=== PATIENT | female | born 1975 | race Caucasian/White ===

== ENCOUNTER 2018-06-17 18:19 | Emergency (ER) | payer MEDICAID ==
[~2018-06-17] VITALS: Ht 165.1 cm; Wt 86.2 kg
[2018-06-17 19:24] LABS: BASOPHILS % (AUTO) 0.5 % (0-1); EOSINOPHILS % (AUTO) 0.6 % (0-6); HEMATOCRIT 35.8 % (35.0-45.0); HEMOGLOBIN 11.3 g/dl (12.0-16.0); LYMPHOCYTES % (AUTO) 27.3 % (21-51); MEAN CORPUSCULAR HEMOGLOBIN 22.9 PG (27.0-31.0); MEAN CORPUSCULAR HGB CONC 31.6 % (33.0-36.5); MEAN CORPUSCULAR VOLUME 72.3 FL (78-98); MEAN PLATELET VOLUME 8.1 FL (7.4-10.4); MONOCYTES # (AUTO) 0.5 X10'3 (0-0.9); MONOCYTES % (AUTO) 6.4 % (2-12); NEUTROPHILS % (AUTO) 65.2 % (42-75); PLATELET COUNT 421 X10'3 (140-440); RED BLOOD COUNT 4.95 X10'6 (4.20-5.60); RED CELL DISTRIBUTION WIDTH 16.8 % (11.5-14.5); WHITE BLOOD COUNT 7.5 X10'3 (4.5-11.0)
[2018-06-17 19:34] LABS: ALANINE AMINOTRANSFERASE 34 U/L (12-78); ALBUMIN 3.2 G/DL (3.4-5.0); ALBUMIN/GLOBULIN RATIO 0.9 (1.1-1.5); ALKALINE PHOSPHATASE 111 IU/L (46-116); ANION GAP 10 (8-16); ASPARTATE AMINO TRANSFERASE 35 U/L (10-37); BILIRUBIN,TOTAL 0.7 MG/DL (0.1-1.0); BLOOD UREA NITROGEN 25 MG/DL (7-18); BUN/CREATININE RATIO 23.1 (6.6-38.0); CALCIUM 8.1 MG/DL (8.5-10.1); CHLORIDE 105 MMOL/L (99-107); CREATININE 1.08 MG/DL (0.40-0.90); PARTIAL THROMBOPLASTIN TIME 24 SECONDS (22-32); POTASSIUM 3.7 MMOL/L (3.5-5.1); PROTHROMBIN TIME 10.6 SECONDS (9.0-12.0); SODIUM 139 MMOL/L (135-145); TOTAL CARBON DIOXIDE 24.4 MMOL/L (24-32); TOTAL PROTEIN 6.7 G/DL (6.4-8.2); eGFR 55 ML/MIN
[2018-06-17 19:36] LABS: GLUCOSE 48 MG/DL (70-104)
[2018-06-17] MEDS ORDERED: HYDR-4353 PO (20:55)
[2018-06-17] MEDS ORDERED: SULF1TAB49 PO (20:55)
[2018-06-17] MEDS ORDERED: HYDROcodone/acetaminophen 10/325mg tab PO ONE (21:30)
[2018-06-17] MEDS ORDERED: ondansetron 4mg rapidly disintigrating tab PO ONE (21:30)
[2018-06-17] MEDS ORDERED: sulfamethoxazole/trimethoprim DS (800/160mg) tablet PO ONE (21:30)
[2018-06-17 21:42] VITALS: BP 111/73
== END 2018-06-17 21:49 | disposition home or self-care (01) ==
LOC: ER 18:19
DX: I96 Gangrene, not elsewhere classified (principal); F15.90 Other stimulant use, unspecified, uncomplicated; Z98.890 Other specified postprocedural states; Z98.84 Bariatric surgery status
CPT/HCPCS: 36415; 71045; 73140; 80053; 82948; 83605; 84145; 85025; 85610; 85730; 87040; 99285

== ENCOUNTER 2018-07-05 09:35 | Outpatient (CLI) | payer MEDICAID ==
[2018-07-05] MEDS ORDERED: POTA10TA19 PO (11:50)
== END 2018-07-05 12:30 | disposition home or self-care (01) ==
LOC: WOUND CARE 09:35
PROVIDERS: ATTEND Surgery
DX: S61.200A Unspecified open wound of right index finger without damage to nail, initial encounter (principal); L08.9 Local infection of the skin and subcutaneous tissue, unspecified; I96 Gangrene, not elsewhere classified; F17.200 Nicotine dependence, unspecified, uncomplicated; F15.10 Other stimulant abuse, uncomplicated; Z98.84 Bariatric surgery status; Z90.49 Acquired absence of other specified parts of digestive tract; X58.XXXA Exposure to other specified factors, initial encounter; Y93.89 Activity, other specified; Y92.89 Other specified places as the place of occurrence of the external cause; Y99.8 Other external cause status
CPT/HCPCS: 99215; A4414; A6196

== ENCOUNTER 2018-07-15 11:00 | Outpatient (CLI) | payer MEDICAID ==
[~2018-07-15 11:00] MED LIST: POTA10TA19 PO
[2018-07-15] MEDS ORDERED: LIDOcaine/PRILOcaine 5gm cream TP ONE (11:48)
[2018-07-15] MEDS ORDERED: FURO-150 PO (13:21)
[2018-07-15] MEDS ORDERED: LISI-600 PO (13:21)
[2018-07-15] MEDS ORDERED: CIPR-259 PO (13:22)
== END 2018-07-15 12:53 | disposition home or self-care (01) ==
LOC: WOUND CARE 11:00
PROVIDERS: ATTEND Surgery
DX: S61.200D Unspecified open wound of right index finger without damage to nail, subsequent encounter (principal); L08.9 Local infection of the skin and subcutaneous tissue, unspecified; I96 Gangrene, not elsewhere classified; F17.200 Nicotine dependence, unspecified, uncomplicated; F15.10 Other stimulant abuse, uncomplicated; Z98.84 Bariatric surgery status; Z90.49 Acquired absence of other specified parts of digestive tract; X58.XXXD Exposure to other specified factors, subsequent encounter
CPT/HCPCS: 99215; A6196

== ENCOUNTER 2018-07-21 10:47 | Outpatient (CLI) | payer MEDICAID ==
[~2018-07-21 10:47] MED LIST changes: +CIPR-259 PO; +FURO-150 PO; +LISI-600 PO
[2018-07-21] MEDS ORDERED: LIDOcaine/PRILOcaine 5gm cream TP ONE (11:17)
[2018-07-21] MEDS ORDERED: COLL30OI TP (12:10)
== END 2018-07-21 11:59 | disposition home or self-care (01) ==
LOC: WOUND CARE 10:47
PROVIDERS: ATTEND Surgery
DX: S61.200D Unspecified open wound of right index finger without damage to nail, subsequent encounter (principal); L08.9 Local infection of the skin and subcutaneous tissue, unspecified; I96 Gangrene, not elsewhere classified; F17.200 Nicotine dependence, unspecified, uncomplicated; F15.10 Other stimulant abuse, uncomplicated; Z98.84 Bariatric surgery status; Z90.49 Acquired absence of other specified parts of digestive tract; X58.XXXD Exposure to other specified factors, subsequent encounter
CPT/HCPCS: 99215; A6196

== ENCOUNTER 2018-08-06 09:49 | Outpatient (CLI) | payer MEDICAID ==
[~2018-08-06 09:49] MED LIST changes: +COLL30OI TP
[2018-08-06] MEDS ORDERED: LIDOcaine 2% 5ml jelly MM ONE (14:15)
== END 2018-08-06 11:24 | disposition home or self-care (01) ==
LOC: WOUND CARE 09:49
PROVIDERS: ATTEND Surgery
DX: S61.200D Unspecified open wound of right index finger without damage to nail, subsequent encounter (principal); L08.9 Local infection of the skin and subcutaneous tissue, unspecified; I96 Gangrene, not elsewhere classified; F17.200 Nicotine dependence, unspecified, uncomplicated; F15.10 Other stimulant abuse, uncomplicated; Z98.84 Bariatric surgery status; Z90.49 Acquired absence of other specified parts of digestive tract; X58.XXXD Exposure to other specified factors, subsequent encounter
CPT/HCPCS: 99214; A6196; A6212

== ENCOUNTER 2018-08-12 11:05 | Day surgery (SDC) | payer MEDICAID | END 2018-08-12 12:51 | disposition home or self-care (01) | LOC: WOUND CARE 11:05 | PROVIDERS: ATTEND Surgery | DX: L98.491 Non-pressure chronic ulcer of skin of other sites limited to breakdown of skin (principal); L08.9 Local infection of the skin and subcutaneous tissue, unspecified; I96 Gangrene, not elsewhere classified; F17.200 Nicotine dependence, unspecified, uncomplicated; F15.10 Other stimulant abuse, uncomplicated; Z98.84 Bariatric surgery status; Z90.49 Acquired absence of other specified parts of digestive tract | CPT/HCPCS: A6021 ==

== ENCOUNTER 2018-08-25 10:31 | Outpatient (CLI) | payer MEDICAID ==
[~2018-08-25 10:31] MED LIST changes: -CIPR-259 PO
== END 2018-08-25 12:05 | disposition home or self-care (01) ==
LOC: WOUND CARE 10:31
PROVIDERS: ATTEND Surgery
DX: L98.491 Non-pressure chronic ulcer of skin of other sites limited to breakdown of skin (principal); L08.9 Local infection of the skin and subcutaneous tissue, unspecified; I96 Gangrene, not elsewhere classified; F17.200 Nicotine dependence, unspecified, uncomplicated; F15.10 Other stimulant abuse, uncomplicated; Z98.84 Bariatric surgery status; Z90.49 Acquired absence of other specified parts of digestive tract
CPT/HCPCS: A6021; G0463

== ENCOUNTER 2018-09-02 10:51 | Day surgery (SDC) | payer MEDICAID ==
[~2018-09-02 10:51] MED LIST changes: -COLL30OI TP
[2018-09-02] MEDS ORDERED: LIDOcaine 1%/PF 5ML 10 MG/ML VIAL ONE (12:20)
== END 2018-09-02 12:52 | disposition home or self-care (01) ==
LOC: WOUND CARE 10:51
PROVIDERS: ATTEND Surgery
DX: L98.491 Non-pressure chronic ulcer of skin of other sites limited to breakdown of skin (principal); L08.9 Local infection of the skin and subcutaneous tissue, unspecified; I96 Gangrene, not elsewhere classified; F17.200 Nicotine dependence, unspecified, uncomplicated; F15.10 Other stimulant abuse, uncomplicated; Z98.84 Bariatric surgery status; Z90.49 Acquired absence of other specified parts of digestive tract
CPT/HCPCS: 11044; A6222; J2001; A6021

== ENCOUNTER 2018-09-15 09:46 | Day surgery (SDC) | payer MEDICAID ==
[2018-09-15] MEDS ORDERED: LIDOcaine 2% 5ml jelly MM ONE (11:25)
--- NOTE | 2018-09-15 11:28 | NUR ---
Patient ambulated independently from [facility] and was admitted to outpatient wound care for physician visit. Dressing removed, wound cleansed and lidocaine applied per order. Patient assessed for changes in conditions, medications and medical history. Dr. Recinos at bedside accompanied by RN. Wound assessed, time out performed by MD/RN. Wound debrided as detailed in the physician progress/procedure note. Plan of care discussed with patient. Dressings placed per MD orders. Patient instructed on the signs and symptoms of infection and to call the Wound Center if any occur or to go to the ED if we are closed: Increased pain in wound Increase in drainage from the wound Redness in the skin surrounding the wound Bleeding from the wound Temperature of 101 or greater Patient verbalized understanding of all discharge instructions and plan of care and ambulated independently out to [facility] in stable condition with no sign or symptom of distress at time of discharge. Addendum: 09/15/18 at 1129 by Omaira Porter RN Amended: Links added.
== END 2018-09-15 11:03 | disposition home or self-care (01) ==
LOC: WOUND CARE 09:46
PROVIDERS: ATTEND Surgery
DX: L98.493 Non-pressure chronic ulcer of skin of other sites with necrosis of muscle (principal); L08.9 Local infection of the skin and subcutaneous tissue, unspecified; I96 Gangrene, not elsewhere classified; F17.200 Nicotine dependence, unspecified, uncomplicated; F15.10 Other stimulant abuse, uncomplicated; Z98.84 Bariatric surgery status; Z90.49 Acquired absence of other specified parts of digestive tract
CPT/HCPCS: 97597; A6021; A6206

== ENCOUNTER 2018-10-05 09:34 | Outpatient (CLI) | payer MEDICAID ==
[2018-10-05] MEDS ORDERED: LIDOcaine/PRILOcaine 5gm cream TP ONE (10:03)
--- NOTE | 2018-10-05 12:20 | NUR ---
Patient ambulated independently from [facility] and was admitted to outpatient wound care for physician visit with Lance Recinos MD. Dressing removed, wound cleansed and lidocaine applied per order. Patient assessed for changes in conditions, medications and medical history. Dr. Recinos at bedside accompanied by RN. Wound assessed and no debridement was done. Plan of care discussed with patient. Dressings placed per MD orders. Patient instructed on the signs and symptoms of infection and to call the Wound Center if any occur or to go to the ED if we are closed: Increased pain in wound Increase in drainage from the wound Redness in the skin surrounding the wound Bleeding from the wound Temperature of 101 or greater Patient verbalized understanding of all discharge instructions and plan of care and ambulated independently out to [facility] in stable condition with no sign or symptom of distress at time of discharge. Addendum: 10/05/18 at 1223 by Omaira Porter RN Amended: Links added.
== END 2018-10-05 10:49 | disposition home or self-care (01) ==
LOC: WOUND CARE 09:34
PROVIDERS: ATTEND Surgery
DX: L98.493 Non-pressure chronic ulcer of skin of other sites with necrosis of muscle (principal); L08.9 Local infection of the skin and subcutaneous tissue, unspecified; I96 Gangrene, not elsewhere classified; F17.200 Nicotine dependence, unspecified, uncomplicated; F15.10 Other stimulant abuse, uncomplicated; Z98.84 Bariatric surgery status; Z90.49 Acquired absence of other specified parts of digestive tract
CPT/HCPCS: A6255; G0463

== ENCOUNTER 2018-10-14 10:43 | Outpatient (CLI) | payer MEDICAID ==
[2018-10-14] MEDS ORDERED: LIDOcaine 2% 5ml jelly ONE (12:14)
--- NOTE | 2018-10-14 13:00 | NUR ---
Patient ambulated independently from [facility] accompanied by her mother and was admitted to outpatient wound care for physician visit with Lance Recinos MD. Dressing removed, wound cleansed and lidocaine applied per order. Patient assessed for changes in conditions, medications and medical history. 1215 - Dr. Recinos at bedside accompanied by RN. Wound assessed by MD; orders written. Plan of care discussed with patient. Dressings placed per MD orders. Patient instructed on the signs and symptoms of infection and to call the Wound Center if any occur or to go to the ED if we are closed: Increased pain in wound Increase in drainage from the wound Redness in the skin surrounding the wound Bleeding from the wound Temperature of 101 or greater Patient instructed that the weight of their body puts a large amount of pressure on their wounds. This pressure keeps the new tissue from growing and inhibits new blood vessels from forming. Explained that, if they continue to bear weight on a body part that has a wound, the time it takes to heal the wound increases, the wound may get worse or the wound may not heal at all. Patient and her mother verbalized understanding of all discharge instructions and plan of care and patient ambulated independently out to [facility] in stable condition with no sign or symptom of distress at time of discharge and is accompanied by her mother.
== END 2018-10-14 12:40 | disposition home or self-care (01) ==
LOC: WOUND CARE 10:43
PROVIDERS: ATTEND Surgery
DX: L98.493 Non-pressure chronic ulcer of skin of other sites with necrosis of muscle (principal); L08.9 Local infection of the skin and subcutaneous tissue, unspecified; I96 Gangrene, not elsewhere classified; F17.200 Nicotine dependence, unspecified, uncomplicated; F15.10 Other stimulant abuse, uncomplicated; Z98.84 Bariatric surgery status; Z90.49 Acquired absence of other specified parts of digestive tract
CPT/HCPCS: A6206; G0463

== ENCOUNTER 2018-10-27 10:50 | Day surgery (SDC) | payer MEDICAID ==
[2018-10-27] MEDS ORDERED: LIDOcaine/PRILOcaine 5gm cream TP ONE (11:03)
--- NOTE | 2018-10-27 12:14 | NUR ---
Patient ambulated independently from [facility] and was admitted to outpatient wound care for physician visit with Lance Recinos MD. Dressing removed, wound cleansed and lidocaine applied per order. Patient assessed for changes in conditions, medications and medical history. Dr. Recinos at bedside accompanied by RN. Wound assessed, time out performed by MD/RN. Wound debrided as detailed in the physician progress/procedure note. Plan of care discussed with patient. Dressings placed per MD orders. Patient instructed on the signs and symptoms of infection and to call the Wound Center if any occur or to go to the ED if we are closed: Increased pain in wound Increase in drainage from the wound Redness in the skin surrounding the wound Bleeding from the wound Temperature of 101 or greater Patient instructed that the weight of their body puts a large amount of pressure on their wounds. This pressure keeps the new tissue from growing and inhibits new blood vessels from forming. Explained that, if they continue to bear weight on a body part that has a wound, the time it takes to heal the wound increases, the wound may get worse or the wound may not heal at all. Patient verbalized understanding of all discharge instructions and plan of care and ambulated independently out to [facility] in stable condition with no sign or symptom of distress at time of discharge. Addendum: 10/27/18 at 1215 by Omaira Porter RN Amended: Links added.
== END 2018-10-27 11:56 | disposition home or self-care (01) ==
LOC: WOUND CARE 10:50
PROVIDERS: ATTEND Surgery
DX: L98.493 Non-pressure chronic ulcer of skin of other sites with necrosis of muscle (principal); L08.9 Local infection of the skin and subcutaneous tissue, unspecified; I96 Gangrene, not elsewhere classified; F17.200 Nicotine dependence, unspecified, uncomplicated; F15.10 Other stimulant abuse, uncomplicated; Z98.84 Bariatric surgery status; Z90.49 Acquired absence of other specified parts of digestive tract
CPT/HCPCS: 97597; A6021; A6206